=== PATIENT | male | born 1985 | race Caucasian/White ===

== ENCOUNTER 2017-11-06 19:23 | Emergency (ER) | payer SELFPAY ==
[~2017-11-06] VITALS: Ht 175.3 cm; Wt 114.0 kg
[2017-11-06] MEDS ORDERED: MORPHINE SULFATE 10 MG/ML CPJ IM ONE (20:30)
[2017-11-06 20:44] VITALS: BP 118/59
[2017-11-06] MEDS ORDERED: ACETAMINOPHEN 325MG TABLET PO ONE (22:00)
== END 2017-11-06 22:28 | disposition home or self-care (01) ==
LOC: ER 19:23
DX: S16.1XXA Strain of muscle, fascia and tendon at neck level, initial encounter (principal); S39.012A Strain of muscle, fascia and tendon of lower back, initial encounter; S20.219A Contusion of unspecified front wall of thorax, initial encounter; F17.210 Nicotine dependence, cigarettes, uncomplicated; Z90.49 Acquired absence of other specified parts of digestive tract; Z88.2 Allergy status to sulfonamides; V43.52XA Car driver injured in collision with other type car in traffic accident, initial encounter; Y93.89 Activity, other specified; Y92.488 Other paved roadways as the place of occurrence of the external cause
CPT/HCPCS: 71010; 72040; 72100; 96372; 99284; J2270; Z7610